=== PATIENT | female | born 1990 | race Caucasian/White ===

== ENCOUNTER 2020-04-23 00:02 | Emergency (ER) | payer SELFPAY ==
[~2020-04-23] VITALS: Ht 152.4 cm; Wt 52.2 kg
[2020-04-23 00:05] VITALS: Ht 152.4 cm; Wt 52.2 kg
[2020-04-23 00:55] LABS: BASOPHIL % 0.3 % (0-2); PLATELET COUNT 368 x10^3mcL (130-400); RED CELL DISTRIBUTION WIDTH 12.6 % (11.5-14.5)
[2020-04-23 01:09] LABS: ALBUMIN 4.2 g/dL (3.4-5.0); ALKALINE PHOSPHATASE 58 U/L (46-116); ALT/SGPT 22 U/L (14-59); AST/SGOT 19 U/L (15-37); BILIRUBIN TOTAL 0.6 mg/dL (0.20-1.00); CALCIUM 9.3 mg/dL (8.5-10.1); CHLORIDE SERUM 96 mmol/L (98-107); CREATININE SERUM 0.9 mg/dL (0.6-1.0); GFR1 > 60 mL/min; GLUCOSE SERUM 151 mg/dL (74-106); SODIUM SERUM 131 mmol/L (136-145)
[2020-04-23 01:35] LABS: TOTAL PROTEIN, SERUM 8.5 g/dL (6.4-8.2)
[2020-04-23 01:38] LABS: POTASSIUM SERUM 2.9 mmol/L (3.5-5.1)
[2020-04-23 02:56] VITALS: BP 105/73
== END 2020-04-23 02:53 | disposition home or self-care (01) ==
LOC: ED 00:02
PROVIDERS: Emergency Medicine
DX: E87.6 Hypokalemia (principal)
CPT/HCPCS: 85378; Q0092; Q0162